=== PATIENT | male | born 1995 | race American Indian/Alaskan Native ===

== ENCOUNTER 2019-08-14 13:05 | Emergency (ER) | payer SELFPAY ==
--- NOTE | 2019-08-14 13:54 | Event Note ---
ED Screening Note Date of service: 08/14/19 Time: 13:54 ED Screening Note: 24 yo M w/ hx of asthma presents to ED w/ cough, chest pain, SOB. Pt states cough began 1 month ago. Has been using TheraFlu, inhaler, neb treatments at home. States symptoms are getting worse. Reports chest pain with cough. Pt reports that he was diagnosed and treated for pneumonia last year. This initial assessment/diagnostic orders/clinical plan/treatment(s) is/are subject to change based on patients health status, clinical progression and re- assessment by fellow clinical providers in the ED. Further treatment and workup at subsequent clinical providers discretion. Patient/guardian urged not to elope from the ED as their condition may be serious if not clinically assessed and managed. Initial orders include: CXR
--- NOTE | 2019-08-14 14:21 | XRay Report ---
CHEST 2 VIEWS INDICATION / CLINICAL INFORMATION: cough. COMPARISON: None available. FINDINGS: SUPPORT DEVICES: None. HEART / MEDIASTINUM: No significant abnormality. LUNGS / PLEURA: No significant pulmonary or pleural abnormality. No pneumothorax. ADDITIONAL FINDINGS: No significant additional findings. IMPRESSION: 1. No acute findings. Signer Name: Rodrigo Ariza MD Signed: 08/14/2019 2:17 PM Workstation Name: [id number]
--- NOTE | 2019-08-14 16:41 | Emergency Department Report ---
ED Asthma HPI - General Chief Complaint: Dyspnea/Respdistress Stated Complaint: ASTHMA/CHEST PAIN Time Seen by Provider: 08/14/19 16:15 Source: patient Mode of arrival: Ambulatory Limitations: No Limitations - History of Present Illness Initial Comments: 24-year-old Afro[place] male with unknown past medical history of asthma on no home medications presents emergency department complaining of a 7 day history of waxing and waning congestion, coryza with nasal congestion, shortness of breath and a nonproductive cough just basically feels like he is catching a cold and is unable to shake of the filling despite hydrating and utilizing his son's albuterol medication he reports no hemoptysis, hematemesis nor hematochezia Complaint: "asthma attack", wheezing -: week(s) (7) Severity: mild Context: ran out of meds Associated Symptoms: dry cough. denies: leg edema, syncope Treatments Prior to Arrival: inhaled bronchodilator - Related Data Current Asthma Therapy: none Previous Rx's Medication Instructions Recorded Last Taken Type Albuterol INH(or & Nicu Only) 2 puff IH QID PRN #1 inhalation 08/14/19 Unknown Rx [ProAir HFA Inhaler] Montelukast [Singulair] 10 mg PO QPM #14 tablet 08/14/19 Unknown Rx guaiFENesin/CODEINE [Robitussin AC] 5 ml PO Q6H PRN #120 ml 08/14/19 Unknown Rx predniSONE [Deltasone] 50 mg PO QDAY #5 tab 08/14/19 Unknown Rx Allergies Allergy/AdvReac Type Severity Reaction Status Date / Time No Known Allergies Allergy Verified 08/14/19 13:10 ED Review of Systems ROS: Stated complaint: ASTHMA/CHEST PAIN Other details as noted in HPI Comment: All other systems reviewed and negative ED Past Medical Hx - Past Medical History Previous Medical History?: Yes Hx Asthma: Yes - Surgical History Past Surgical History?: No - Social History Smoking Status: Light Tobacco Smoker Substance Use Type: Marijuana - Medications Home Medications: Home Medications Medication Instructions Recorded Confirmed Last Taken Type Albuterol INH(or & Nicu Only) 2 puff IH QID PRN #1 inhalation 08/14/19 Unknown Rx [ProAir HFA Inhaler] Montelukast [Singulair] 10 mg PO QPM #14 tablet 08/14/19 Unknown Rx guaiFENesin/CODEINE [Robitussin AC] 5 ml PO Q6H PRN #120 ml 08/14/19 Unknown Rx predniSONE [Deltasone] 50 mg PO QDAY #5 tab 08/14/19 Unknown Rx ED Physical Exam - General Limitations: No Limitations General appearance: alert, in no apparent distress - Head Head exam: Present: atraumatic, normocephalic - Eye Eye exam: Present: normal appearance, PERRL, EOMI. Absent: conjunctival injection, nystagmus Pupils: Present: normal accommodation - ENT ENT exam: Present: mucous membranes moist, other (nasal congestion bilaterally with boggy turbinates on the left. Postnasal drainage is noted. Pharynx is e rythematous without exudate.) - Neck Neck exam: Present: normal inspection - Respiratory Respiratory exam: Present: respiratory distress, wheezes, rhonchi. Absent: chest wall tenderness, accessory muscle use - Cardiovascular Cardiovascular Exam: Present: regular rate, normal rhythm. Absent: systolic murmur, diastolic murmur, rubs, gallop - GI/Abdominal GI/Abdominal exam: Present: soft, normal bowel sounds - Rectal Rectal exam: Present: deferred - Extremities Exam Extremities exam: Present: normal inspection - Back Exam Back exam: Present: normal inspection - Neurological Exam Neurological exam: Present: alert, oriented X3 - Psychiatric Psychiatric exam: Present: normal affect, normal mood - Skin Skin exam: Present: warm, dry, intact, normal color. Absent: rash ED Course Vital Signs 08/14/19 08/14/19 13:48 16:28 Temperature 97.1 F L 97.4 F L Pulse Rate 79 69 Respiratory 16 16 Rate Blood Pressure 159/83 Blood Pressure 159/83 116/59 [Left] O2 Sat by Pulse 97 Oximetry - Consultations Consultation #1: 08/14/19 17:28 Symptoms improved after treatment ED Medical Decision Making - Radiology Data Radiology results: report reviewed (x-ray report reads no acute processes. Unable to cut and paste the actual report due to inability to log into [employer] imaging viewer.) Critical care attestation.: If time is entered above; I have spent that time in minutes in the direct care of this critically ill patient, excluding procedure time. ED Disposition Clinical Impression: Asthma attack, URI (upper respiratory infection) Disposition: TO HOME OR SELFCARE Is pt being admited?: No Does the pt Need Aspirin: No Condition: Stable Instructions: Asthma (ED), Upper Respiratory Infection (ED) Additional Instructions: You should return to the hospital if: you begin to develop worsening shortness of breath/difficulty breathing despite treatment with your prescribed medications, if you develop fevers for greater than 2 days, worsening cough, or for any other concerns with your breathing or any other problems. For more information on Asthma please visit the [employer]'s Website at: [email or web address] Prescriptions: predniSONE [Deltasone] 50 mg PO QDAY #5 tab Albuterol INH(or & Nicu Only) [ProAir HFA Inhaler] 2 puff IH QID PRN #1 inhalation PRN Reason: Shortness Of Breath guaiFENesin/CODEINE [Robitussin AC] 5 ml PO Q6H PRN #120 ml PRN Reason: Cough Montelukast [Singulair] 10 mg PO QPM #14 tablet Referrals: KRISTIN QUINONES MD [Staff Physician] - 3-5 Days
[2019-08-14 16:44] VITALS: BP 116/59
[2019-08-14] MEDS: ACETAMINOPEN W/CODEINE 120-12MG ORAL LIQD 5 ML PO STA (17:04)
[2019-08-14] MEDS: IPRATROPIUM/ALBUTEROL SULFATE 3 ML AMPUL.NEB IH ONE (17:04)
[2019-08-14] MEDS: predniSONE 50 MG TAB PO STA (17:04)
== END 2019-08-14 18:25 | disposition home or self-care (01) ==
LOC: ED 13:05
DX: J45.909 Unspecified asthma, uncomplicated (principal); J06.9 Acute upper respiratory infection, unspecified; F17.200 Nicotine dependence, unspecified, uncomplicated; F12.10 Cannabis abuse, uncomplicated; Z79.899 Other long term (current) drug therapy
CPT/HCPCS: 71046; 94640; 99283; J7512